=== PATIENT | female | born 1945 | race African-American/Black ===

== ENCOUNTER 2019-06-30 18:09 | Emergency (ER) | payer OTHER ==
[~2019-06-30] VITALS: Ht 165.1 cm; Wt 72.6 kg
[~2019-06-30 18:09] MED LIST: AMLODIPINE BESY10 MG PO; COLACE100 MG PO; CRESTOR10 MG PO; FLONASE PO; GLIPIZIDE ER5 MG PO; GLUCOPHAGE XR500 MG PO; HYDROCHLOROTHIA25 M1 PO; LOTREL 10-20 M1 EACH PO; OXYCODONE HCL5 M1 PO; PERCOCET 5-3251 EACH OR; SPIRIVA INH; SYMBICORT160 MCG/4. INH; VENTOLIN HFA INH8 GM INH
[2019-06-30 18:13] VITALS: BP 142/56
[2019-06-30 19:43] LABS: ABSOLUTE NEUTROPHILS 6.6 thou/uL (1.4-8.2); BASOPHILS 0.5 % (0.0-2.0); EOSINOPHILS 1.1 % (0.0-3.0); HEMATOCRIT 37.3 % (37.0-47.0); LYMPHOCYTES 14.3 % (24.0-44.0); MCH 26.9 pg (26.0-34.0); MCHC 32.2 g/dL (28.0-37.0); MCV 83.5 fL (80.0-100.0); MONOCYTES 9.2 % (1.0-8.0); PLATELET COUNT 225 thou/uL (150-400); POLYS 74.9 % (36.0-66.0); RBC 4.47 mil/uL (4.20-5.00); RDW 16.4 % (10.5-14.5); WBC 8.8 thou/uL (4.0-11.0)
[2019-06-30 19:46] LABS: ANION GAP 7 mmol/L (7-16); BUN 21 mg/dL (7-18); CALCIUM 9.2 mg/dL (8.5-10.1); CHLORIDE 101 mmol/L (98-107); CO2 31 mmol/L (21-32); CREATININE 0.7 mg/dL (0.6-1.0); GLUCOSE 93 mg/dL (74-106); POTASSIUM 5.6 mmol/L (3.5-5.1); SODIUM 139 mmol/L (136-145)
[2019-06-30 19:52] LABS: ALBUMIN 3.3 g/dL (3.4-5.0); DIRECT BILIRUBIN < 0.1 mg/dL (<0.1-0.2); LIPASE 131 U/L (73-393); SGOT 36 U/L (15-37); SGPT 14 U/L (30-65); TOTAL BILIRUBIN 0.3 mg/dL (<0.1-1.0); TOTAL PROTEIN 7.1 g/dL (6.4-8.2)
[2019-06-30] MEDS ORDERED: ZOFRAN ODT4 MG PO (22:29)
--- NOTE | 2019-07-01 08:31 | EKG ---
[facility] [place] [address] ELECTROCARDIOGRAM REPORT Name: MORENITA DOMINGUEZ Room #: DEP [facility].#: [id number] Admission: 06/30/19 Attend Phys: Discharge: 06/30/19 Date of : 41 Report #: [id number] THIS REPORT FOR: cc: BLANCA - Shanice family physician/PCP BLANCA - No family physician/PCP Parveen Sanchez MD ~ THIS REPORT FOR: //name// [facility] ED Test Date: 2019-06-30 Test Time: 20:23:16 Pat Name: MORENITA DOMINGUEZ Department: Room: Gender: Retail Ware[employer] Associate: NANDINI : 1945 Requested By: Latricia Busby Order Number: [id number] MD: Parveen Sanchez Measurements Intervals [place] Rate: 55 P: 60 [place]: 153 QRS: 25 QRSD: 92 T: 61 QT: 454 QTc: 435 Interpretive Statements Sinus rhythm No previous ECG available for comparison Electronically Signed On 07-01-2019 8:30:25 BANDSAW OPERATOR by Parveen Sanchez [email or web address] <ELECTRONICALLY SIGNED> By: Parveen Sanchez MD 07/01/19 0830 22 22 Parveen Sanchez MD /GISELA
== END 2019-06-30 22:41 | disposition home or self-care (01) ==
LOC: ER 18:09
PROVIDERS: Emergency Medicine Emergency Medical Services
DX: R11.2 Nausea with vomiting, unspecified (principal); R19.7 Diarrhea, unspecified; F32.9 Major depressive disorder, single episode, unspecified; I10 Essential (primary) hypertension; E11.9 Type 2 diabetes mellitus without complications; E78.00 Pure hypercholesterolemia, unspecified; J44.9 Chronic obstructive pulmonary disease, unspecified; Z90.710 Acquired absence of both cervix and uterus; Z86.73 Personal history of transient ischemic attack (TIA), and cerebral infarction without residual deficits